=== PATIENT | male | born 1980 | race Caucasian/White ===

== ENCOUNTER 2019-07-06 10:02 | Day surgery (SDC) | payer OTHER, SELFPAY ==
[2019-07-06 10:26] VITALS: BP 162/102; PULSE 95; RESP 18; TEMP 36.6; O2SAT 97
[2019-07-06] MEDS: sodium chloride 0.9% 1,000 ML 30 ML IV (10:30)
[2019-07-06 10:32] VITALS: BMI 54.4
--- NOTE | 2019-07-06 10:49 | ANES.PREANE2 ---
Pre-Anesthetic Assessment Pre-Anesthetic Assessment: Height/Weight: Height 1.73 m Weight 162.386 kg Temp Pulse Resp BP Pulse Ox 97.8 F 95 18 162/102 97 07/06/19 10:26 07/06/19 10:26 07/06/19 10:26 07/06/19 10:26 07/06/19 10:26 Preop Diagnosis: Infected sebaceous cyst Proposed Procedure: Operation Date: 07/06/19 14:10 Proposed Procedures p Excision of cyst on back(Not Applicable) - Rogelio Moss MD Last intake: Intake Last Liquid Date 07/05/19 Last Solid Date 07/05/19 Social: Packs per day: 1 Pack years: 29 Comment: quit 3m Exam: Pre-Anes Outpt Exam: alert, oriented x 3, clear to auscultation bilaterally and regular rate & rhythm Airway: Submandibular: WNL Cervical ROM: WNL MP: 3 Pulmonary: Pulmonary: Sleep apnea CV/HEM: CV/HEM: HTN Comments: rx'd 3m 2 blocks/2FOS without angina/MUNOZ Metabolic: Metabolic: Morbid obesity Data Anesthesia Cardiac Studies: No Data to Display
--- NOTE | 2019-07-06 11:04 | W.PM.OPSUD ---
Surgery/Procedure H&P Update DATE OF PROCEDURE: July 06, 2019 DATE H&P PERFORMED: 07/06/19 H&P UPDATE INFORMATION: I have reviewed H&P completed within last 30 days, I have examined patient prior to procedure and No changes to prior documentation PREOP DIAGNOSIS: Infected sebaceous cyst PLANNED PROCEDURE: Operation Date: 07/06/19 14:10 Proposed Procedures p Excision of cyst on back(Not Applicable) - Rogelio Moss MD
[2019-07-06] MEDS: lidocaine 1% INJ 20 mL IM (11:42)
[2019-07-06] MEDS: neomycin-poly-bacitracin oint 28 gm 1 APPLIC TOPICAL (12:03)
[2019-07-06 12:12] VITALS: BP 124/84; PULSE 87; RESP 20; TEMP 36.4; O2SAT 94
--- NOTE | 2019-07-06 12:17 | P.OP_ITS ---
Operative Report Date of procedure: July 06, 2019 Pre-op Diagnosis: Infected sebaceous cyst Post-op diagnosis: same Procedure Done: Excision of infected sebaceous cyst measuring 5 x 4 cm Pathology: Sebaceous cyst from the back Surgeon: Rogelio Moss Anesthesia: MAC Estimated blood loss (mL): 10 Condition: stable Disposition: same day Procedure: Patient was taken to the operating room and placed in right lateral position under MAC after IV antibiotic had been administered. The area around the palpable mass was prepped and draped in a sterile manner. The 2 separate puncti were noted with drainage of purulent fluid. 20 cc of 1% lidocaine with 0.5% Marcaine was infiltrated around the palpable mass. Using a 15 blade an elliptical oblique incision was made incorporating the 2 puncti. Using electrocautery the infected sebaceous cyst was dissected from the surrounding subcutaneous tissue and excised completely. The wound was irrigated with saline, hemostasis ensured and subcutaneous tissues approximated using in terrupted 3-0 Vicryl suture and skin was closed using vertical mattress 2-0 Prolene suture. Antibiotic cream and sterile dressings were used to cover the incision. The patient was transferred to recovery room in stable condition.
[2019-07-06 12:45] VITALS: BP 156/104; PULSE 82; RESP 18; O2SAT 96
== END 2019-07-06 13:00 | disposition home or self-care (01) ==
PROVIDERS: Family Provider Family Medicine; PCP Family Medicine; Visit Provider Surgery
PROC: (CPT 11406; principal; 2019-07-06 14:00)
DX: L72.3 Sebaceous cyst (principal); Z87.891 Personal history of nicotine dependence; G47.30 Sleep apnea, unspecified; I10 Essential (primary) hypertension; E66.01 Morbid (severe) obesity due to excess calories; Z68.43 Body mass index [BMI] 50.0-59.9, adult; Z79.82 Long term (current) use of aspirin
CPT/HCPCS: 11406; 12032; 12345; 88304; J0690; J2001; J2704; J3010; J3490; J7030

== ENCOUNTER 2021-04-09 17:00 | Outpatient (CLI) | payer OTHER, SELFPAY | END 2021-04-09 17:01 | disposition home or self-care (01) | LOC: SLEEP 04-15 08:22 | PROVIDERS: Family Provider Family Medicine; PCP Family Medicine; Visit Provider Family Medicine | DX: G47.30 Sleep apnea, unspecified (principal) | CPT/HCPCS: G0399 ==

== ENCOUNTER → 2021-04-16 17:36 | Outpatient (BNVA) | payer OTHER, SELFPAY | PROVIDERS: Family Provider Family Medicine; PCP Family Medicine; Visit Provider Nurse Practitioner Family | DX: Z20.822 Contact with and (suspected) exposure to COVID-19 (principal) | CPT/HCPCS: 87635 ==

== ENCOUNTER → 2021-11-14 14:17 | Outpatient (BNVA) | payer OTHER, SELFPAY | PROVIDERS: Family Provider Family Medicine; PCP Family Medicine; Visit Provider Family Medicine | DX: M25.579 Pain in unspecified ankle and joints of unspecified foot (principal); M10.9 Gout, unspecified | CPT/HCPCS: 84550 ==

== ENCOUNTER 2021-11-20 17:44 | Outpatient (CLI) | payer OTHER, SELFPAY ==
--- NOTE | 2021-11-20 17:49 | XR_ITS ---
WS: [id number] Left ankle, 2 views, 11/20/2021 Clinical Data: Bilateral ankle pain Comparison: Left ankle, 11/22/2013. Findings: No fractures or dislocations are seen. The ankle mortise is normal. The talus and calcaneus are unrem arkable. No soft tissue swelling over the medial or lateral malleolus is seen. There is a plantar spur. XR/XR ankle LT 2V 28139 Impression: Negative left ankle.
--- NOTE | 2021-11-20 17:49 | XR_ITS ---
WS: [id number] Right ankle, 2 views, 11/20/2021 Clinical Data: Bilateral ankle pain Comparison: None. Findings: No fractures or dislocations are seen. The ankle mortise is normal. The talus and calcaneus are unrem arkable. No soft tissue swelling over the medial or lateral malleolus is seen. There is a plantar spur. XR/XR ankle RT 2V 01500 Impression: Negative right ankle.
== END 2021-11-20 17:45 | disposition home or self-care (01) ==
PROVIDERS: PCP Family Medicine; Visit Provider Family Medicine
DX: M25.571 Pain in right ankle and joints of right foot (principal); M25.572 Pain in left ankle and joints of left foot
CPT/HCPCS: 73600

== ENCOUNTER → 2022-09-02 13:00 | Outpatient (BNVA) | payer OTHER, SELFPAY | PROVIDERS: PCP Family Medicine; Visit Provider Family Medicine | DX: I77.6 Arteritis, unspecified (principal) | CPT/HCPCS: 80053; 85025; 85651; 86140 ==

== ENCOUNTER 2022-12-10 16:12 | Emergency (ER) | payer OTHER, SELFPAY ==
[2022-12-10 16:17] VITALS: PULSE 88; RESP 16; TEMP 36.7; O2SAT 95
[2022-12-10 19:33] VITALS: BP 167/112; PULSE 76; RESP 18; O2SAT 97
--- NOTE | 2022-12-10 19:35 | W.ED.WEAKNES ---
HPI - Weakness General: Chief complaint: Weakness Stated complaint: weakness Time Seen by Provider: 12/10/22 19:16 Source: patient Mode of arrival: ambulatory Limitations: no limitations History of Present Illness: 42-year-old male states that he was working today states he is extremely hot it was 115 degrees when he is working he states that roughly 4 to 5 hours ago he started to feel like he is getting overheated he states that he stopped sweating with starting having some dizziness and having neck pain he states he had his blood pressure checked and he was hypertensive having nausea so they sent him to the ER he said that since being out of the heat he is feeling improved. He denies any fevers. Associated symptoms: Denies chest pain, chills, fever(s), headache(s), nausea or vomiting Review of Systems Const: Reports: body aches; Denies: fever(s) or chills Eyes: Denies: blurry vision or eye discomfort ENMT: Denies: throat pain or dental pain Card: Denies: chest pain Resp: Denies: dyspnea GI: Denies: abdominal pain, nausea, vomiting or diarrhea : Reports: oliguria Musc: Denies: neck pain or back pain Skin/Breast: Denies: rash Neuro: Denies: headache(s) PFSH ED PFSH: Medical History Gout Hypertension Sebaceous cyst Surgical History H/O excision of mass (~07/06/19) Family History Denies family history of Diabetes CAD (coronary artery disease) Anesthesia complication Bleeding disorder Lung disease Cancer Stroke Social History Smoking and tobacco status: former smoker Alcohol intake: never Substance/Drug Use: never Course Vital Signs: Vital signs: Vital Signs Temperature 98.0 F 12/10/22 16:17 Pulse Rate 76 12/10/22 19:33 Respiratory Rate 18 12/10/22 19:33 Blood Pressure 167/112 12/10/22 19:33 Pulse Oximetry 97 12/10/22 19:33 Oxygen Delivery Me thod Room Air 12/10/22 19:33 MDM - Weakness Medical Decision Making Patient presents here with heat exposure blood work here is normal he feels much improved after being out of the heat he has had some hypertension as well I informed him to monitor his blood pressure over the next week if it continues to be high he needs to double his metoprolol he also needs a follow-up with PCP with his blood pressure logs return if worsening he understands agrees to plan. Medical Records I reviewed the patient's medical records. Lab Data I reviewed the patient's lab results. 12/10/22 19:34 12/10/22 19:34 Laboratory Results WBC 8.77 10^3/uL (3.29-11.43) 12/10/22 19:34 RBC 4.85 10^6/uL (3.85-5.65) 12/10/22 19:34 Hgb 14.10 g/dL (11.27-16.99) 12/10/22 19:34 Hct 43.0 % (37-53) 12/10/22 19:34 MCV 88.7 fl (82-101) 12/10/22 19:34 MCH 29.1 pg (27-33) 12/10/22 19:34 MCHC 32.8 g/dL (30-55) 12/10/22 19:34 RDW 13.6 % (12.1-15.1) 12/10/22 19:34 Plt Count 236 10^3/cmm (157-399) 12/10/22 19:34 MPV 10.6 fL (7.4-10.4) H 12/10/22 19:34 Neut % (Auto) 49.6 % 12/10/22 19:34 Lymph % (Auto) 38.1 % 12/10/22 19:34 [place] % (Auto) 9.9 % 12/10/22 19:34 Eos % (Auto) 1.6 % 12/10/22 19:34 Baso % (Auto) 0.6 % 12/10/22 19:34 Neut # (Auto) 4.35 10^3/uL (1.8-7.7) 12/10/22 19:34 Lymph # (Auto) 3.3 10^3/uL (0.8-4.8) 12/10/22 19:34 [place] # (Auto) 0.9 10^3/uL (0.2-0.9) 12/10/22 19:34 Eos # (Auto) 0.1 10^3/uL (0.0-0.8) 12/10/22 19:34 Baso # (Auto) 0.1 10^3/uL (0.0-0.1) 12/10/22 19:34 Nucleated RBC % (auto) 0 % 12/10/22 19:34 Nucleated RBCs # 0.0 /100WBC 12/10/22 19:34 Sodium 140 mmol/L (136-145) 12/10/22 19:34 Potassium 3.9 mmol/L (3.5-5.1) 12/10/22 19:34 Chloride 106 mmol/L (98-107) 12/10/22 19:34 Carbon Dioxide 24 mmol/L (22-29) 12/10/22 19:34 Anion Gap 13.9 (5-19) 12/10/22 19:34 BUN 8 mg/dL (6-20) 12/10/22 19:34 Creatinine 0.6 mg/dL (0.7-1.2) L 12/10/22 19:34 GFR Calculation 146.4 mL/min (90-130) H 12/10/22 19:34 Glucose 85 mg/dL (65-115) 12/10/22 19:34 Calculated Osmolality 288 mOsm/kg (285-295) 12/10/22 19:34 Calcium 9.0 mg/dL (8.5-10.5) 12/10/22 19:34 Total Bilirubin 0.4 mg/dL (0.15-1.2) 12/10/22 19:34 AST 24 U/L (0-40) 12/10/22 19:34 ALT 28 U/L (0-41) 12/10/22 19:34 Alkaline Phosphatase 79 U/L (40-130) 12/10/22 19:34 Creatine Kinase 183 U/L (39-308) 12/10/22 19:34 Total Protein 7.5 g/dL (6.6-8.7) 12/10/22 19:34 Albumin 4.3 g/dL (3.5-5.2) 12/10/22 19:34 Globulin 3.2 g/dL (1.3-4.6) 12/10/22 19:34 Discharge Plan Discharge Patient Disposition: Home Clinical Impression: Hypertension, Heat exposure Condition: Stable Prescriptions: No Action metoprolol succinate 25 mg tablet extended release 24 hr 25 mg PO DAILY Qty: 30 11RF Discharge Orders: Discharge ED (Routine); Ordered 12/10/22 Ordered By: Kip Baker Referrals: Steve Morales MD [Primary Care Provider] - Discharge Diet: Advance as tolerated Discharge Activity: Resume usual activity Patient Instructions: Hypertension (ED) Coding Level of Care Code ED Able Bodied Seaman for Loretta Fraser
--- NOTE | 2022-12-10 19:36 | ECG_ITS ---
[facility] Test Date: 2022-12-10 Pat Name: Gerard Florez Department: Room: Gender: Male Director Operations Broadcast: : 1980 Requested By: Gerard Sesay Order Number: [id number] French MD: Alexandre Garcia M.D. Measurements Intervals [place] Rate: 68 P: 32 GA: 178 QRS: -16 QRSD: 167 T: 99 QT: 409 QTc: 437 Interpretive Statements SINUS RHYTHM INTRAVENTRICULAR CONDUCTION DELAY [130+ ms QRS DURATION] No previous ECG available for comparison Electronically Signed On 12-10-2022 20:08:30 CDT by Alexandre Garcia M.D. [email or web address]
[2022-12-10] MEDS: sodium chloride 0.9% 1,000 ML 999 ML IV (19:40)
[2022-12-10 19:44] LABS: Basophils # 0.1 10^3/uL (0.0-0.1); Basophils % 0.6 %; Eosinophils # 0.1 10^3/uL (0.0-0.8); Eosinophils % 1.6 %; Lymphocytes # 3.3 10^3/uL (0.8-4.8); Lymphocytes % 38.1 %; Mean Corpuscular HGB Conc 32.8 g/dL (30-55); Mean Corpuscular Hemoglobin 29.1 pg (27-33); Mean Corpuscular Volume 88.7 fl (82-101); Mean Platelet Volume 10.6 fL (7.4-10.4); Monocytes # 0.9 10^3/uL (0.2-0.9); Monocytes % 9.9 %; Neutrophils # 4.35 10^3/uL (1.8-7.7); Neutrophils % 49.6 %; Nucleated Red Blood Cells % 0 %; Platelet Count 236 10^3/cmm (157-399); Red Blood Count 4.85 10^6/uL (3.85-5.65); Red Cell Distribution Width 13.6 % (12.1-15.1); White Blood Count 8.77 10^3/uL (3.29-11.43)
[2022-12-10 20:09] LABS: Alanine Aminotransferase 28 U/L (0-41); Albumin Level 4.3 g/dL (3.5-5.2); Alkaline Phosphatase 79 U/L (40-130); Anion Gap 13.9 (5-19); Aspartate Amino Transferase 24 U/L (0-40); Blood Urea Nitrogen 8 mg/dL (6-20); Carbon Dioxide 24 mmol/L (22-29); Chloride 106 mmol/L (98-107); Creatine Phosphokinase 183 U/L (39-308); Globulin 3.2 g/dL (1.3-4.6); Glomerular Filtration Rate 146.4 mL/min (90-130); Glucose 85 mg/dL (65-115); Osmolality Calculated 288 mOsm/kg (285-295); Potassium 3.9 mmol/L (3.5-5.1); Sodium 140 mmol/L (136-145); Total Bilirubin 0.4 mg/dL (0.15-1.2); Total Protein 7.5 g/dL (6.6-8.7)
[2022-12-10 20:45] VITALS: BP 180/102; PULSE 71; O2SAT 95
== END 2022-12-10 20:47 | disposition home or self-care (01) ==
PROVIDERS: Nurse Practitioner Family; Emergency Provider Emergency Medicine; PCP Family Medicine
DX: I10 Essential (primary) hypertension (principal); X30.XXXA Exposure to excessive natural heat, initial encounter; Y99.0 Civilian activity done for income or pay; Z87.891 Personal history of nicotine dependence
CPT/HCPCS: 80053; 82550; 85025; 93005; 96360; 99284; J7030

== ENCOUNTER → 2023-07-02 11:13 | Outpatient (BNVA) | payer OTHER, SELFPAY | PROVIDERS: PCP Family Medicine; Visit Provider Clinical Nurse Specialist Adult Health | DX: J06.9 Acute upper respiratory infection, unspecified (principal) | CPT/HCPCS: 87400 ==

== ENCOUNTER → 2024-01-05 14:42 | Outpatient (BNVA) | payer OTHER, SELFPAY | PROVIDERS: PCP Family Medicine; Visit Provider Family Medicine | DX: I10 Essential (primary) hypertension (principal); E11.9 Type 2 diabetes mellitus without complications | CPT/HCPCS: 80048; 80061; 84443 ==